=== PATIENT | female | born 1965 | race Caucasian/White ===

== ENCOUNTER 2023-06-05 04:10 | Day surgery (SDC) | payer OTHER ==
[2023-06-05] VITALS (229 sets, daily range): BP systolic 63–171; BP diastolic 26–111
[~2023-06-05] VITALS: Ht 162.6 cm; Wt 63.6 kg
[2023-06-05] MEDS ORDERED: FAMOTIDINE 20 MG/TAB PO PRN (07:30)
[2023-06-05] MEDS ORDERED: SCOPOLAMINE 1.5 MG DIS TD PRN (07:30)
[2023-06-05] MEDS ORDERED: PANTOPRAZOLE SODIUM Sesquihydr 40 MG/TAB PO PRN (07:30)
[2023-06-05] MEDS ORDERED: CYANOCOBALAMIN 500 MCG/TAB ( B12) PO PRN (07:30)
[2023-06-05] MEDS ORDERED: diazePAM 5 MG/TAB PO PRN ×2 (07:30→08:30)
[2023-06-05] MEDS ORDERED: LACTATED RINGER'S 1,000 ML IV PRN ×3 (07:30→19:00)
[2023-06-05] MEDS ORDERED: ALBUTEROL SULFATE 2.5 MG VIAL IN PRN (07:30)
[2023-06-05] MEDS ORDERED: cloNIDine HCL 0.1 MG/TAB PO PRN (07:30)
[2023-06-05] MEDS ORDERED: ASCORBIC ACID 3,000 MG in SODIUM CHLORIDE 0.9% 1,000 ML IV SCH (08:00)
[2023-06-05 08:45] LABS: BASO% 1.1 % (0-3); EOS% 16.8 % (0-8); HEMOGLOBIN 12.8 g/dl (12.0-16.0); IMMATURE GRANULOCYTES 0.2 % (0.0-5.0); LYMPH% 28.4 % (15-41); MEAN CELL VOLUME 83.5 fL CALC (80.0-100.0); MEAN CORPUSCULAR HGB 26.7 pG CALC (26.0-32.0); MONO% 8.5 % (2-13); NEUT# 2.92 thou/uL (2.00-7.15); RED BLOOD COUNT 4.79 mill/uL (4.20-5.60); RED CELL DISTRI WIDTH 14.8 % (11.5-15.5)
[2023-06-05] MEDS ORDERED: ZESTRIL40 MG PO (09:05)
[2023-06-05] MEDS ORDERED: PROZAC40 MG PO (09:05)
[2023-06-05] MEDS ORDERED: BAYER ASPIRIN E81 MG PO (09:06)
[2023-06-05] MEDS ORDERED: ZOCOR20 M1 PO (09:06)
[2023-06-05] MEDS ORDERED: PRILOSEC20 MG/CAP PO (09:07)
[2023-06-05 10:02] LABS: ALBUMIN 4.2 g/dL (3.2-5.0); ALKALINE PHOSPHATASE 114 u/l (38-126); ANION GAP 12 (6-22 (CALC)); BILIRUBIN, TOTAL 0.4 mg/dL (0.02-1.3); BUN 12 mg/dL (7-17); BUN/CREATININE RATIO 15 (12-20 (CALC)); CARBON DIOXIDE 28 mmol/l (22-30); CHLORIDE 104 mmol/l (95-108); CREATININE 0.8 mg/dL (0.5-1.0); GFR FOR AFR.AMER. > 60 ML/MIN (>=60 (CALC)); GFR OTHER RACES > 60 ML/MIN (>=60 (CALC)); POTASSIUM 4.1 mmol/l (3.5-5.1); SGOT/AST 28 u/l (14-36); SODIUM 139 mmol/l (137-146); TOTAL PROTEIN 6.9 g/dL (6.3-8.2)
[2023-06-05] MEDS ORDERED: cloNIDine HCL 0.1 MG/TAB VT PRN (10:30)
[2023-06-05] MEDS ORDERED: ROCURONIUM BROMIDE 10 MG/ML 5ML VIAL IV PRN (10:30)
[2023-06-05] MEDS ORDERED: DEXAMETHASONE SOD. PHOSPHATE 10 MG/ML VIAL IV PRN (10:30)
[2023-06-05] MEDS ORDERED: ONDANSETRON HCl 4 MG/2 ML SDV IV PRN ×3 (10:30→19:00)
[2023-06-05] MEDS ORDERED: THIAMINE HCL 100 MG/ML 2ML VIAL IV PRN (10:30)
[2023-06-05] MEDS ORDERED: POTASSIUM CHLORIDE 20 MEQ/100 ML BAG IV PRN (10:30)
[2023-06-05] MEDS ORDERED: DiphenhydrAMINE HCL 50 MG/ML SDV IV PRN (10:30)
[2023-06-05] MEDS ORDERED: LIDOCAINE HCL 1% (10MG/ML) 100 MG/10 ML MDV IV PRN (10:30)
[2023-06-05] MEDS ORDERED: SUCCINYLCHOLINE CHLORIDE 20 MG/ML 10ML VIAL IV PRN (10:30)
[2023-06-05] MEDS ORDERED: cloNIDine HYDROCHLORIDE 100 MCG/ML 10 ML INJ IV PRN (10:30)
[2023-06-05] MEDS ORDERED: diazePAM 5 MG/TAB VT PRN (10:30)
[2023-06-05] MEDS ORDERED: OCTREOTIDE ACETATE 100 MCG/VIAL SDV SC PRN (10:30)
[2023-06-05] MEDS ORDERED: PROPOFOL 10 MG/ML 100ML VIAL IV PRN (10:30)
[2023-06-05] MEDS ORDERED: MIDAZOLAM HCL 2 MG/2 ML VIAL IV PRN (10:30)
[2023-06-05] MEDS ORDERED: PROPOFOL 100 ML IV PRN (10:30)
[2023-06-05] MEDS ORDERED: NALTREXONE HCL 50 MG/TAB VT PRN (10:30)
[2023-06-05] MEDS ORDERED: MAGNESIUM SULFATE HEPTAHYDRATE 100 ML IV PRN (10:30)
[2023-06-05] MEDS ORDERED: LIDOCAINE HCL 1% (10MG/ML) 100 MG/10 ML MDV VT PRN ×2 (10:30)
[2023-06-05] MEDS ORDERED: STERILE WATER FOR IRRIGATION 1,000 ML BTL IR PRN (10:30)
[2023-06-05] MEDS ORDERED: PATIENT' OWN MED 1 EA DOSE IV PRN (16:20)
[2023-06-05] MEDS ORDERED: diazePAM 10 MG/2 ML VIAL IV PRN (16:20)
[2023-06-05] MEDS ORDERED: NALTREXONE50 MG PO (16:28)
[2023-06-05] MEDS ORDERED: KLONOPIN2 MG PO (16:29)
[2023-06-05] MEDS ORDERED: CLONIDINE0.1 MG PO (16:29)
[2023-06-05] MEDS ORDERED: HALOPERIDOL LACTATE 5 MG/ML SDV IV PRN (19:00)
[2023-06-05] MEDS ORDERED: DEXAMETHASONE SODIUM PHOSPHATE PF 10 MG/ML SDV IV PRN (19:00)
[2023-06-05] MEDS ORDERED: ACETAMINOPHEN 500 MG TAB PO PRN (19:00)
[2023-06-05] MEDS ORDERED: PROMETHAZINE HCL 25 MG in SODIUM CHLORIDE 0.9% 50 ML IV PRN (19:00)
[2023-06-05] MEDS ORDERED: PROMETHAZINE HCL 12.5 MG in SODIUM CHLORIDE 0.9% 50 ML IV PRN (19:00)
[2023-06-05] MEDS ORDERED: ACETAMINOPHEN 1,000 MG/100 ML VIAL IV PRN (19:00)
[2023-06-05] MEDS ORDERED: KETOROLAC TROMETHAMINE 30 MG/ML SDV IV PRN (19:00)
[2023-06-05] MEDS ORDERED: cloNIDine HCL 0.1 MG/TAB PO SCH (23:00)
[2023-06-05] MEDS ORDERED: clonazePAM 1 MG/TAB PO SCH (23:00)
[2023-06-06] MEDS ORDERED: cloNIDine HCL 0.1 MG/TAB PO PRN (04:00)
[2023-06-06] MEDS ORDERED: clonazePAM 1 MG/TAB PO PRN ×2 (04:00→08:00)
[2023-06-06 04:21] VITALS: BP 146/83
[2023-06-06 06:55] VITALS: BP 126/76
[2023-06-06 07:34] LABS: BASO% 0.1 % (0-3); HEMATOCRIT 34.4 % (37.0-47.0); HEMOGLOBIN 11.3 g/dl (12.0-16.0); IMMATURE GRANULOCYTES 0.3 % (0.0-5.0); LYMPH% 8.9 % (15-41); MEAN CELL VOLUME 83.7 fL CALC (80.0-100.0); MEAN CORPUSCULAR HGB 27.5 pG CALC (26.0-32.0); MEAN CORPUSCULAR HGB CONC 32.8 g/dL CAL (32.0-36.0); MONO% 3.6 % (2-13); NEUT# 8.72 thou/uL (2.00-7.15); NEUT% 87.1 % (42-76); RED BLOOD COUNT 4.11 mill/uL (4.20-5.60); RED CELL DISTRI WIDTH 14.7 % (11.5-15.5)
[2023-06-06] MEDS ORDERED: NALTREXONE HCL 50 MG/TAB PO SCH (08:00)
[2023-06-06] MEDS ORDERED: ACETAMINOPHEN 325 MG/TAB PO SCH (08:00)
[2023-06-06] MEDS ORDERED: PANTOPRAZOLE SODIUM Sesquihydr 40 MG/TAB PO SCH (08:00)
[2023-06-06] MEDS ORDERED: cloNIDine HCL 0.1 MG/TAB PO SCH (08:00)
[2023-06-06 08:01] LABS: ALBUMIN 3.6 g/dL (3.2-5.0); ALKALINE PHOSPHATASE 102 u/l (38-126); BUN 9 mg/dL (7-17); BUN/CREATININE RATIO 14 (12-20 (CALC)); CHLORIDE 109 mmol/l (95-108); CREATININE 0.6 mg/dL (0.5-1.0); GFR FOR AFR.AMER. > 60 ML/MIN (>=60 (CALC)); GFR OTHER RACES > 60 ML/MIN (>=60 (CALC)); MAGNESIUM 2.1 mg/dL (1.6-2.3); SGOT/AST 41 u/l (14-36); SODIUM 134 mmol/l (137-146); TOTAL PROTEIN 6.2 g/dL (6.3-8.2)
[2023-06-06 08:04] LABS: ANION GAP 11 (6-22 (CALC)); BILIRUBIN, TOTAL 0.7 mg/dL (0.02-1.3); CARBON DIOXIDE 18 mmol/l (22-30)
[2023-06-06 08:24] VITALS: BP 126/76
[2023-06-06] MEDS ORDERED: ACETAMINOPHEN 500 MG TAB PO PRN (09:00)
[2023-06-06] MEDS ORDERED: SIMVASTATIN 5 MG TAB PO SCH (09:00)
[2023-06-06] MEDS ORDERED: LISINOPRIL 20 MG/TAB PO SCH (09:00)
[2023-06-06] MEDS ORDERED: ASPIRIN 81 MG/TAB PO SCH (09:00)
[2023-06-06] MEDS ORDERED: MAGNESIUM OXIDE 400 MG/TAB PO PRN (09:00)
[2023-06-06] MEDS ORDERED: FLUoxetine HCL 10 MG/CAP PO SCH (09:00)
[2023-06-06] MEDS ORDERED: Cholecalciferol 2,000 UNIT/TAB PO PRN (09:00)
== END 2023-06-06 16:37 | disposition home or self-care (01) | DRG 897 ==
LOC: MS2 04:10 → ANR 04:10
PROVIDERS: ATTEND Anesthesiology Critical Care Medicine
DX: F11.20 Opioid dependence, uncomplicated (principal)
CPT/HCPCS: J2354; J3475